=== PATIENT | female | born 1970 | race African-American/Black ===

== ENCOUNTER 2021-09-21 19:02 | Emergency (ER) | payer OTHER ==
[~2021-09-21] VITALS: Ht 165.1 cm; Wt 72.6 kg
--- NOTE | 2021-09-21 19:23 | NUR ---
xray at bedside.
[2021-09-21] MEDS ORDERED: DIPH25CA83 PO (19:29)
[2021-09-21] MEDS ORDERED: NITR100C11 PO (19:29)
--- NOTE | 2021-09-21 19:34 | NUR ---
Lab at bedside.
[2021-09-21 19:46] LABS: MEAN CORPUSCULAR HEMOGLOBIN 27.9 uug (24.7-32.8); MEAN CORPUSCULAR VOLUME 84.3 fL (75.5-95.3); PLATELET COUNT (AUTO) 391 K/uL (179-408)
[2021-09-21 20:02] LABS: ALANINE AMINOTRANSFERASE 16 U/L (14-59); ALKALINE PHOSPHATASE 70 U/L (50-136); ASPARTATE AMINOTRANSFERASE 13 U/L (15-37); BILIRUBIN,DIRECT 0.1 mg/dL (0.0-0.2); BILIRUBIN,TOTAL 0.3 mg/dL (0.2-1.0); CARBON DIOXIDE 26 mmol/L (21-32); CHLORIDE 103 mmol/L (98-107); CREATININE 0.8 mg/dL (0.6-1.3); GLUCOSE 86 mg/dL (74-106); POTASSIUM 3.2 mmol/L (3.5-5.1); TOTAL PROTEIN, SERUM 7.7 g/dL (6.4-8.2); UREA NITROGEN, BLOOD 12 mg/dL (7-18)
[2021-09-21] MEDS ORDERED: POTASSIUM CHLORIDE 20 MEQ TAB.PRT.SR PO ONE (21:00)
[2021-09-21] MEDS ORDERED: ASPIRIN 81 MG TAB.CHEW PO ONE (21:00)
[2021-09-21] MEDS ORDERED: ASPIRIN 81 MG TAB.CHEW ONE (21:05)
[2021-09-21] MEDS ORDERED: POTASSIUM CHLORIDE 20 MEQ TAB.PRT.SR ONE (21:05)
--- NOTE | 2021-09-21 22:28 | NUR ---
Patient discharged to home in stable condition. Written and verbal after care instructions given. Patient verbalizes understanding of instructions. Stressed follow up or return to ER for worsening s/s. Steady gait. Denies any pain/discomfort upon discharge. No SOB or labored breathing, afebrile. No N/V/D. No changes in LOC. Clear speech, complete sentences.
[2021-09-21 22:35] VITALS: BP 133/72
== END 2021-09-21 22:36 | disposition home or self-care (01) ==
LOC: ER 19:09
DX: R07.9 Chest pain, unspecified (principal); E87.6 Hypokalemia; G89.29 Other chronic pain; M54.9 Dorsalgia, unspecified; M79.604 Pain in right leg
CPT/HCPCS: 36415; 71045; 84484; 85025; 93005; A4663